=== PATIENT | male | born 1955 | race Caucasian/White ===

== ENCOUNTER 2020-02-03 17:03 | Emergency (ER) | payer OTHER, SELFPAY ==
[~2020-02-03] VITALS: Ht 167.6 cm; Wt 77.1 kg
[2020-02-03 17:43] VITALS: Ht 167.6 cm; Wt 77.1 kg
[2020-02-03 18:56] VITALS: BP 136/91
== END 2020-02-03 18:59 | disposition home or self-care (01) ==
LOC: ED 17:03
DX: J12.89 Other viral pneumonia (principal); J44.1 Chronic obstructive pulmonary disease with (acute) exacerbation; I10 Essential (primary) hypertension; Z88.5 Allergy status to narcotic agent
CPT/HCPCS: J1885; Q0092; U0003-CS

== ENCOUNTER 2020-05-02 23:22 | Emergency (ER) | payer OTHER ==
[~2020-05-02] VITALS: Ht 170.2 cm; Wt 84.4 kg
[2020-05-02 23:49] VITALS: Ht 170.2 cm; Wt 84.4 kg
[2020-05-03 01:10] VITALS: BP 151/86
== END 2020-05-03 01:11 | disposition home or self-care (01) ==
LOC: ED 23:22
DX: M75.31 Calcific tendinitis of right shoulder (principal); I10 Essential (primary) hypertension; Z88.5 Allergy status to narcotic agent

== ENCOUNTER 2020-06-09 15:05 | Emergency (ER) | payer OTHER ==
[~2020-06-09] VITALS: Ht 170.2 cm; Wt 81.6 kg
[~2020-06-09 15:05] MED LIST: ADVAIR DISKUS 21 DSK IH; ALBUD HHN; ALPRAZOLAM XR1 MG PO; ATRUD HHN; CHLORTHALIDONE25 MG PO; DELTASONE20 MG PO; DILTIAZEM HCL360 M2 PO; KLOR-CON M1010 MEQ PO; LEVAQUIN500 M1 PO; MEDI-FIRST IBU200 MG PO; PROVENTIL INHALER IH; SPIRIVA RE2.5 MCG/Ac IH; TYLENOL EXTRA500 M3 PO
[2020-06-09 15:22] VITALS: Ht 170.2 cm; Wt 81.6 kg
[2020-06-09 16:50] LABS: BASOPHIL % 0.4 % (0.2-1.5); PLATELET COUNT 290 x10^3mcL (152-348); RED CELL DISTRIBUTION WIDTH 13.6 % (12.1-16.2)
[2020-06-09 17:12] LABS: CALCIUM 9.5 mg/dL (8.5-10.1); CARBON DIOXIDE 28.2 mmol/L (21-32); CHLORIDE SERUM 95 mmol/L (98-107); CREATININE SERUM 1.2 mg/dL (0.7-1.3); GFR1 > 60 mL/min; GLUCOSE SERUM 112 mg/dL (74-106); POTASSIUM SERUM 3.5 mmol/L (3.5-5.1); SODIUM SERUM 137 mmol/L (136-145)
[2020-06-09 17:17] LABS: ALBUMIN 3.4 g/dL (3.4-5.0); ALKALINE PHOSPHATASE 91 U/L (46-116); ALT/SGPT 49 U/L (16-63); AST/SGOT 27 U/L (15-37); BILIRUBIN TOTAL 0.78 mg/dL (0.20-1.00); MAGNESIUM 2.3 mg/dL (1.8-2.4)
[2020-06-09 17:19] LABS: TOTAL PROTEIN, SERUM 8.4 g/dL (6.4-8.2)
[2020-06-09 18:13] LABS: rbc morphology (normal/abnorm) ABNORMAL (NORMAL)
[2020-06-10 02:25] VITALS: BP 144/88
== END 2020-06-10 02:26 | disposition home or self-care (01) ==
LOC: ED 15:05
PROVIDERS: Student in an Organized Health Care Education/Training Program
DX: J96.20 Acute and chronic respiratory failure, unspecified whether with hypoxia or hypercapnia (principal); J12.9 Viral pneumonia, unspecified; Z20.828 Contact with and (suspected) exposure to other viral communicable diseases
CPT/HCPCS: 85378; 87804; Q9967; U0003